=== PATIENT | male | born 2000 | race Two or more races ===

== ENCOUNTER 2023-11-04 20:49 | Emergency (ER) | payer OTHER ==
[2023-11-04 21:12] VITALS: BP 147/89; PULSE 81; RESP 18; TEMP 98.2; BMI 21.7
[2023-11-04] MEDS ORDERED: ACETAMINOPHEN 500 MG TABLET (FP) PO ONE (22:55)
[2023-11-04] MEDS ORDERED: ACETAMINOPHEN 325 MG TABLET (FP) ONE (23:24)
[2023-11-05 00:36] LABS: BASO % 0.7 % (0-2.0); EOS % 0.9 % (0-4.5); HEMATOCRIT 49.2 % (35.4-49); HEMOGLOBIN 16.8 GM/dL (11.7-16.9); LYMPH % 40.4 % (8-40); MCH 31.1 pg (25.7-33.7); MEAN CELL VOLUME 91.2 fl (80-96); MEAN PLT VOLUME 9.7 fl (7.5-11.1); MONO % 5.4 % (3.8-10.2); NEUT % 52.6 % (42.8-82.8); PLATELET COUNT 201 10^3/uL (134-434); RDW 12.8 % (11.9-15.9); WHITE BLOOD COUNT 8.1 K/mm3 (4.0-10.0)
[2023-11-05 00:53] LABS: POTASSIUM 3.9 mmol/L (3.5-5.1)
[2023-11-05 00:54] LABS: ALBUMIN 4.2 g/dl (3.4-5.0); BLOOD UREA NITROGEN 16.8 mg/dL (7-18); CALCIUM 9.5 mg/dL (8.5-10.1)
[2023-11-05 00:57] LABS: CREATININE 0.7 mg/dL (0.55-1.3)
[2023-11-05 00:59] LABS: BILIRUBIN,TOTAL 0.6 mg/dL (0.2-1); TOT PROT 8.2 g/dl (6.4-8.2)
== END 2023-11-05 01:38 | disposition left against medical advice (07) ==
LOC: JER 20:49
DX: K62.5 Hemorrhage of anus and rectum (principal); R10.9 Unspecified abdominal pain
CPT/HCPCS: 36415; 80053; 85025; 99283-25

== ENCOUNTER 2024-04-03 21:27 | Emergency (ER) | payer OTHER ==
[2024-04-03 21:50] VITALS: BP 115/77; PULSE 78; RESP 18; TEMP 98.4; BMI 20.2
[2024-04-03] MEDS ORDERED: ACETAMINOPHEN 325 MG TABLET (FP) ONE (22:53)
[2024-04-03] MEDS: ACETAMINOPHEN 325 MG TABLET (FP) PO ONE (22:54)
[2024-04-03 23:01] LABS: EPI CELLS >36 /uL (0-25.1); HYALINE CASTS 16 /uL (0-3.1); URINE APPEARANCE CLOUDY; URINE BACTERIA 4 /uL (0-1359); URINE BILIRUBIN 1+ (NEGATIVE); URINE COLOR DK YELLOW; URINE GLUCOSE (UA) NEGATIVE (NEGATIVE); URINE KETONE 3+ (NEGATIVE); URINE LEUK ESTERASE NEGATIVE (NEGATIVE); URINE NITRITE NEGATIVE (NEGATIVE); URINE PROTEIN 2+ (NEGATIVE); URINE RBC 11 /uL (0-23.9); URINE WBC 38 /uL (0-25.8)
[2024-04-03 23:09] LABS: PHENCYCLIDINE,URINE NEGATIVE (NEGATIVE); URINE AMPHETAMINES NEGATIVE (NEGATIVE); URINE BENZODIAZEPINES NEGATIVE (NEGATIVE)
[2024-04-03 23:10] LABS: URINE BARBITURATES NEGATIVE (NEGATIVE)
[2024-04-03 23:16] LABS: COCAINE, UR NEGATIVE (NEGATIVE); METHADONE, UR NEGATIVE (NEGATIVE); OPIATES, URI NEGATIVE (NEGATIVE)
== END 2024-04-03 23:39 | disposition home or self-care (01) ==
LOC: JER 21:27
DX: R51.9 Headache, unspecified (principal); R11.2 Nausea with vomiting, unspecified
CPT/HCPCS: 80307; 81003; 99283-25